=== PATIENT | male | born 1965 | race Caucasian/White ===

== ENCOUNTER 2017-02-15 13:28 | Emergency (ER) | payer OTHER ==
[~2017-02-15] VITALS: Ht 168.9 cm; Wt 76.2 kg
--- NOTE | ~2017-02-15 | EKG ---
PATIENT: NEREYDA LUJAN UNIT #: [id number] Ventricular Rate: 87 BPM Atrial Rate: 87 BPM P-R Interval: 138 ms QRS Duration: 82 ms Q-T Interval: 362 ms QTC Calculation(Bezet): 435 ms P [place]: 66 degrees Calculated R [place]: 57 degrees Calculated T [place]: 50 degrees Diagnosis Line: Normal sinus rhythm Diagnosis Line: Normal ECG Diagnosis Line: No previous ECGs available Diagnosis Line: Confirmed by JOHN HARP MD ([id number]) on Diagnosis Line: 02/15/2017 3:34:03 PM INTERPRETING MD: MAXI
--- NOTE | ~2017-02-15 | CR72 ---
[facility] RADIOLOGY TEXT RESULTS PATIENT: NEREYDA LUJAN LOCATION: [facility] : 63 UNIT #: [id number] AGE: [address]: Karina Pena MD SEX: M ORDER DR: [id number] [address] [id number] [id number] E MR#: [id number] #: [id number] NAME: NEREYDA LUJAN. : 1965 SEX: M STUDY DATE/TIME: 02/15/2017 15:10 UNIT: [facility] ROOM: STUDY DESCRIPTION: CR Chest Single View Portable Attending Physician: Karina Pena M.D. Ordering Physician: Ed Doc Cr Mena Primary Care Physician: No Primary Care Physician MEDICAL IMAGING REPORT This report is preliminary unless electronic signature is present EXAM Portable chest x-ray, 02/15/2017. HISTORY Chest pain. Short of air, chest pain, left arm pain 2.5 hours. REPORT AP radiograph of the chest is presented. COMPARISON 01/15/2014 FINDINGS Old healed right clavicular fracture. No acute-appearing bony abnormality. The heart and mediastinum are normal in size and contour. The lungs are well inflated. There is no evidence of acute infectious or inflammatory disease, pleural effusion or pneumothorax. No suspicious nodule. Dictated by... Ciro Dhillon M.D. THIS IS AN ELECTRONICALLY VERIFIED REPORT Ciro Dhillon M.D. at 02/17/2017 2:47 PM DERRELL/susan TD: 02/15/2017 21:48 JOB #: [id number] MEDICAL IMAGING REPORT [facility] RADIOLOGY TEXT RESULTS PATIENT: NEREYDA LUJAN LOCATION: [facility] : 63 UNIT #: [id number] AGE: [address]: Karina Pena MD SEX: M ORDER DR: Page 1 of 1 COPY
[~2017-02-15 13:28] MED LIST: BACTRIM DS TABL1 TA1 PO; IBUPROFEN800 MG PO; KEFLEX PO; KEFLEX500 MG PO; MEDROL PO; METOPROLOL SUCC25 MG PO; NO MEDICATIONS
[2017-02-15 13:47] LABS: BASOPHIL# 0.1 X10e3 (0-0.3); BASOPHIL% 1.3 % (0-2.5); EOSINOPHIL# 0.1 X10e3 (0-0.7); EOSINOPHIL% 1.6 % (0.0-7.0); HEMATOCRIT 43.5 % (38.0-50.0); HEMOGLOBIN 14.7 gm/dL (13.0-16.0); LYMPHOCYTE# 1.9 X10e3 (1.0-3.5); LYMPHOCYTE% 28.8 % (17.0-45.0); MEAN CELL VOLUME 91.3 FL (83-96); MEAN CORPUSCULAR HEMOGLOBIN 30.9 PG (28-34); MEAN CORPUSCULAR HGB CONC 33.8 g/dL (30-36); MEAN PLATELET VOLUME 8.8 FL (6.5-11.5); MONOCYTE# 0.6 X10e3 (0-1.0); NEUTROPHIL# 3.9 X10e3 (1.5-7.1); NEUTROPHIL% 59.3 % (40-75); PLATELET COUNT 284 X10e3 (140-420); RED BLOOD COUNT 4.77 X10e (3.90-5.60); RED CELL DISTRIBUTION WIDTH 13.8 % (11.0-15.5); WHITE BLOOD COUNT 6.6 X10e3 (4.0-10.5)
[2017-02-15 14:09] LABS: DIFF IND NO
[2017-02-15 14:16] LABS: ALBUMIN SERUM 4.5 g/dL (3.5-5.0); BILIRUBIN, DIRECT 0.1 mg/dL (0.0-0.2); BILIRUBIN,INDIRECT 0.9 mg/dL (0.0-0.9); CALCIUM SERUM 9.5 mg/dL (8.4-10.2); CREATININE SERUM 1.2 mg/dL (0.6-1.4); GLOM FILT RATE Estimated 69.1 mL/min (>60); POTASSIUM 4.2 mmol/L (3.5-5.1); PROTEIN TOTAL SERUM 7.9 g/dL (6.0-8.3)
[2017-02-15 15:27] LABS: POC - CKMB 2.1 ng/mL (0.0-7.9); POC - TROPONIN <0.05 ng/mL (<=0.05)
[2017-02-15 15:48] LABS: POC - CKMB 2.2 ng/mL (0.0-7.9); POC - TROPONIN <0.05 ng/mL (<=0.05)
== END 2017-02-15 18:03 | disposition home or self-care (01) ==
LOC: CED 13:28
PROVIDERS: Emergency Medicine
DX: R07.89 Other chest pain (principal); I10 Essential (primary) hypertension; Z87.442 Personal history of urinary calculi; Z88.0 Allergy status to penicillin
CPT/HCPCS: 36415; 71010; 80048; 80076; 82553; 84484; 85025; 93005; 96374; 96375; 99285; J1885